=== PATIENT | female | born 1945 | race Caucasian/White ===

== ENCOUNTER 2020-04-09 10:58 | Outpatient (CLI) | payer MEDICARE, SELFPAY ==
--- NOTE | ~2020-04-09 | US_ITS ---
EXAMINATION: US soft tissue head and neck DATE: 04/09/2020 12:22 INDICATION: Anterior neck lump. TECHNIQUE: Multiple grayscale and Doppler ultrasound images of the neck were obtained. COMPARISON: None FINDINGS: There is no abnormal mass in the patient's area of concern in the anterior neck in the supr asternal notch. IMPRESSION: 1. No abnormal mass in the patient's area of concern in the anterior neck. Reviewed, dictated and finalized at location A.
== END 2020-04-09 10:59 | disposition home or self-care (01) ==
PROVIDERS: PCP Internal Medicine; Visit Provider Internal Medicine
DX: R22.1 Localized swelling, mass and lump, neck (principal)
CPT/HCPCS: 76536

== ENCOUNTER → 2020-10-11 13:18 | Outpatient (CLI) | payer MEDICARE, SELFPAY ==
--- NOTE | ~2020-10-11 | US_ITS ---
EXAMINATION: US retroperitoneal comp EXAM DATE: 10/11/2020 14:12 INDICATION: chronic cystitis without hematuria . TECHNIQUE: Multiple grayscale and Doppler images of the kidneys were obtained (by a technologist who performed the scan) and subsequently reviewed. There is no prior study for comparison. FINDINGS: Right kidney: There is normal contour and echogenicity. It measures 8.1 x 3.9 x 3.6 centimeters. Th ere are no focal renal lesions identified. There is no hydronephrosis. Left kidney: There is normal contour and echogenicity. It measures 10.5 x 4.2 x 5.3 centimeters. Th ere are no focal renal lesions identified. There is moderate hydronephrosis of a superior moiety. There is a density causing shadowing in the region of the left ureterovesicular junction projecting i nto the bladder measuring about 1.5 cm. There is dilated tubular structure extending from this pump stitcher ior to the bladder suspected to be hydroureter, however a ureteral jet was also confirmed. 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 Consider C T correlation. 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 Reviewed, dictated and finalized at location B. FARMER IMPRESSION: Findings detailed above; duplicated left ureters with stone obstruc ting superior moiety at the UVJ would explain these findings, but correlation w ith cross-sectional imaging would be helpful.
== END ==
PROVIDERS: Visit Provider Nurse Practitioner Adult Health
DX: N30.20 Other chronic cystitis without hematuria (principal)
CPT/HCPCS: 76770

== ENCOUNTER 2020-10-22 00:36 | Outpatient (CLI) | payer MEDICARE, SELFPAY ==
[2020-10-23 02:00] LABS: SARS-CoV-2 RNA PCR Negative
== END 2020-10-22 00:37 | disposition home or self-care (01) ==
LOC: ANHCOVIDDT 00:37
PROVIDERS: PCP Internal Medicine; Visit Provider Urology
DX: Z01.812 Encounter for preprocedural laboratory examination (principal); Z20.828 Contact with and (suspected) exposure to other viral communicable diseases
CPT/HCPCS: 87635; C9803; U0003

== ENCOUNTER 2020-10-22 07:59 | Outpatient (CLI) | payer MEDICARE, SELFPAY ==
--- NOTE | 2020-10-22 08:01 | ECG_ITS ---
Measurements Intervals [place] Rate: 58 P: 56 ND: 164 QRS: 3 QRSD: 83 T: 30 QT: 377 QTc: 370 Interpretive Statements SINUS BRADYCARDIA BORDERLINE R WAVE PROGRESSION, ANTERIOR LEADS NONSPECIFIC ST & T-WAVE ABNORMALITY- DIFFUSE LEADS BASELINE ARTIFACT- I, II, III, AVR, AVL, AVF BORDERLINE ECG Electronically Signed On 10-22-2020 8:27:56 MAINTENANCE SUPERVISOR MECHANICAL by Noe Knight D.O.
== END 2020-10-22 08:00 | disposition home or self-care (01) ==
PROVIDERS: PCP Internal Medicine; Visit Provider Urology
DX: Z01.810 Encounter for preprocedural cardiovascular examination (principal); N20.1 Calculus of ureter; E78.2 Mixed hyperlipidemia; R00.1 Bradycardia, unspecified
CPT/HCPCS: 87635; 93005; C9803; U0003

== ENCOUNTER 2020-10-23 00:35 | Day surgery (SDC) | payer MEDICARE, SELFPAY ==
[2020-10-21 14:19] VITALS: BMI 23.0
--- NOTE | 2020-10-22 09:11 | WPDANESEPPF ---
Anes - Initial Pre Proc Eval Procedure: Operation Date: 10/23/20 13:00 Proposed Procedures p Cystoscopy, Left Ureteroscopy, Left Retrograde Pyelogram, Left Stone Extraction, Left Stent Placement - Nilton Castro MD s Possible Holmium Laser Procedure - Nilton Castro MD Date/Time: 10/22/20 09:11 Surgeon: Nilton Castro MD Pre Op Diagnosis: Left Ureteral Stone Patient Data Age: 75 Gender: F Height: 1.6 m Weight: 58.98 kg Allergies Allergy/AdvReac Type Severity Reaction Status Date / Time rosuvastatin Allergy Intermediate Joint Pain Verified 10/21/20 13:48 Home Medications Medication Instructions Recorded Confirmed Type aspirin 81 mg PO DAILY 10/21/20 10/21/20 History calcium carbonate-vitamin D3 1 tablet PO BID 10/21/20 10/21/20 History [Calcium 600 + D(3)] docusate sodium [Stool Softener] 50 mg PO HS 10/21/20 10/21/20 History ketorolac 10 mg PO PRN PRN 10/21/20 10/21/20 History propranolol 60 mg PO HS 10/21/20 10/21/20 History rosuvastatin [Crestor] 20 mg PO HS 10/21/20 10/21/20 History turmeric 400 mg PO QAM 10/21/20 10/21/20 History vitamin E 450 mg PO DAILY 10/21/20 10/21/20 History Patient hx anesthesia problems: none Family hx anesthesia problems: none PMFSH Past Medical History Medical History (Updated 10/23/20 @ 11:45 by Enrique Mendoza DO) Mitral valve prolapse Mixed hyperlipidemia Social History Social History Smoking status: Never smoker Second hand tobacco smoke exposure: No Alcohol intake: never Living arrangements: with family Spiritual care concerns: No Anes - Eval Final PreProcedure Day of Procedure 10/22/20 09:11 Patient weight: normal Heart: regular rate and rhythm Lungs: clear to auscultation and normal air movement Airway: Mallampati scale class II Neurological: alert and oriented Last oral intake: >/= 8 hours ASA classification: II Emergent: no Anesthetic plan: proceed Anesthesia type and monitoring: general LMA and standard monitoring Informed Consent: The patient's anesthetic plan and its attendant risks and benefits were discussed with the patient/family/POA. Questions were solicited and answers provided to the satisfaction of the patient/family/POA.
[2020-10-23] VITALS (8 sets, daily range): BP systolic 121–181; BP diastolic 68–94; PULSE 60–74; RESP 10–20; TEMP 36.1–36.7; O2SAT 100
--- NOTE | ~2020-10-23 | XR_ITS ---
EXAMINATION: XR retrograde pyelo w/stent LT DATE: 10/23/2020 14:28 INDICATION: Left ureteral stone. TECHNIQUE: 102 intraoperative fluoroscopic views of the abdomen and pelvis were obtained. I was not p resent. Fluoroscopy exposure time was 71 seconds. COMPARISON: None. FINDINGS: The left-sided retrograde pyelogram demonstrates duplication of the left ureter. There is h ydronephrosis of the upper pole moiety. The final images demonstrate 2 left-sided internal ureteral s tents in expected positions. IMPRESSION: 1. 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 2. Two left-sided internal ureteral stents in expected positions. Reviewed, dictated and finalized at location A. RIAL LIAISON
[2020-10-23] MEDS: ACETAMINOPHEN 500 MG TABLET 1000 MG PO (11:49)
[2020-10-23] MEDS: LACTATED RINGERS 1,000 ML 30 ML IV CONT ×2 (11:50→14:18)
--- NOTE | 2020-10-23 12:38 | WPDHPUPDATE1 ---
History and Physical Update Update Date/Time: 10/23/20 12:38 Pt with left upper pole moiety UVJ stone over 2cm in size Explained increased complexity of procedure given stone size and duplicated system. she agrees to proceed. History and Physical has been reviewed, including an updated exam of the patient. There are NO changes in the patient's condition. Risks, benefits, and alternatives have been discussed and questions answered. Patient agrees to proceed with procedure.
[2020-10-23] MEDS: ceFAZolin 2 GM/D5W 50 ML 2 GM/50 ML BAG IVPB (12:50)
[2020-10-23] MEDS: LIDOCAINE HCL 2% GEL UROJET 10 ML PKG MUCOUS MEM (13:11)
--- NOTE | 2020-10-23 14:16 | PM.PROC ---
Procedure Note - Detailed Date of procedure: 10/23/20 Pre-op diagnosis: Left Ureteral Stone Post-op diagnosis: other (Left ureteral stone > 2cm, duplicated left collecting system) Procedure performed: -cystoscopy -left ureteroscopy of upper pole moiety -laser lithotripsy -retrograde pyelogram -left ureteral stent insertion x2 Description of procedure: Informed consent was obtained. Patient taken the operating room. Given preoperative IV antibiotics. She was induced anesthesia issues placed in dorsal lithotomy position she was prepped and draped in normal sterile fashion. We inserted a 22 F cystoscope through the urethra into the bladder. Inspected the bladder revealed there to be a large stone extruding from the left ureteral orifice of the upper pole moiety, the lower pole moiety ureter was patent. Additionally there was some inflammation of the posterior wall of the bladder likely due to irritation from the stone in the bladder. Was unable to place a wire past the stone in the upper pole moiety, therefore a wire and retrograde pyelogram was performed on the lower pole moiety that showed a delicate collecting system a 4.8 F stent was inserted with the current renal pelvis and curl in the bladder in order to protect the lower pole system. At this point a semi rigid ureteral scope was inserted and we began laser fragmentation of the stone we were able to remove the portion of stone that was extruding into the bladder and begin fragmentation of the stone in the intramural tunnel. At this point I was able to identify a crack in the stone and a wire was advanced beyond the stone into the upper pole system. We then dilated with an 810 coaxial dilator. A retrograde pyelogram revealed an extremely dilated upper pole collecting system. At this point within the advances cm rigid ureteral scope again and were able to use a laser fiber to fragment the stone into multiple fragments, fragments were then removed with a Zero tip basket. This point we inspected the ureter up to the proximal ureter without residual stones seen. Over the wire we placed a 6 F variable length stent with a curl in the upper pole system and curled the bladder. Bladder was emptied. Lidocaine was inserted. Due to the large size of the stone as well as the duplicated system, this procedure that normally takes approximately 30 to 45 minutes took [id number] due to the additional difficulty from the patient's anatomy. We will plan stent removal in 2 to 3 weeks. The patient will need a Lasix renal scan as well as additional upper tract imaging down the road. Anesthesia: GLMA Surgeon: Nilton Castro MD Estimated blood loss (mL): 10 Drains: No Packing: No Pathology: yes Complications: No immediate complications Condition: stable Disposition: PACU
--- NOTE | 2020-10-23 16:47 | SUR.PHASEII ---
1557 - dr. morrissey talking with pt at length.
== END 2020-10-23 16:05 | disposition home or self-care (01) ==
PROVIDERS: PCP Internal Medicine; Visit Provider Urology
PROC: (CPT 52352; principal; 2020-10-23 13:00)
PROC: (CPT 52356; 2020-10-23 13:00)
DX: N20.1 Calculus of ureter (principal); Q62.5 Duplication of ureter; E78.2 Mixed hyperlipidemia; I34.1 Nonrheumatic mitral (valve) prolapse
CPT/HCPCS: 52356; 52332; 74420; 82365; 88300; A9270; C1769; C2617; J0690; J2405; J2704; J3010; J7120; Q9966

== ENCOUNTER → 2020-12-09 08:49 | Outpatient (CLI) | payer MEDICARE, SELFPAY ==
--- NOTE | ~2020-12-09 | XR_ITS ---
EXAMINATION: XR abdomen/kub 1V INDICATION: Duplicated left collecting system TECHNIQUE: Supine views of the abdomen were obtained on 2 radiographs. COMPARISON: None FINDINGS: A 3 mm stone projects in the left kidney lower pole. Punctate left upper quadrant calcifica tions are consistent with old granulomatous disease of the spleen. There are phleboliths of the pelvi s. The bowel gas pattern is normal. There are no dilated loops of bowel. The visualized lung bases ar e clear. IMPRESSION: 1. Right nephrolithiasis. Reviewed, dictated and finalized at location A. VIOUR SUPPORT TEACHER IMPRESSION: 1. Right nephrolithiasis.
--- NOTE | ~2020-12-09 | CT_ITS ---
EXAMINATION: CT abdomen pelvis wo/w con DATE: 12/09/2020 09:44 INDICATION: Duplicated left renal collecting system, history of kidney stones TECHNIQUE: Computed tomography (CT) of the abdomen and pelvis was performed without intravenous contr ast. CT of the abdomen and pelvis was then performed with a total of 130 mL Omnipaque 350 intravenous contrast using a double-bolus technique for simultaneous opacification of the renal parenchyma and r enal collecting system. The dose-length product (DLP) was 1014.44 mGy-cm. Automated exposure control and iterative reconstruction technique were employed. COMPARISON: None FINDINGS: Minimal dependent atelectasis is present in the lung bases. The heart size is normal. Cysts of the liver measure up to 1.6 cm in the left hepatic lobe. Punctate calcifications in an otherwise normal spleen likely represent healed granulomatous disease. The pancreas, gallbladder, and adrenal g lands are normal. There is a 3 mm nonobstructing stone of the right kidney lower pole. No stones are present in the left kidney, ureters, or the bladder. There is a duplicated collecting system on the l eft. The left ureters are separately throughout their course and inserts separate from one another in the bladder. The ureter from the lower pole demonstrates intermittent opacification throughout its c ourse. No suspicious renal or urothelial lesion is identified. No hydronephrosis or hydroureter is se en. No pathologically enlarged abdominal or pelvic lymph nodes are identified. There is no free intra peritoneal gas or evidence of bowel obstruction. There is moderate lumbar spondylosis at L5-S1. IMPRESSION: 1. Duplicated left collecting system without hydronephrosis or hydroureter urine no suspicious renal or urothelial lesion identified. 2. Nonobstructing right nephrolithiasis. Reviewed, dictated and finalized at location A. CTION MOULDING MACHINE OPERATOR IMPRESSION: 1. Duplicated left collecting system without hydronephrosis or hydroureter urin e no suspicious renal or urothelial lesion identified. 2. Nonobstructing right nephrolithiasis.
[2020-12-09 09:22] LABS: Estimated Glomerular Filt Rate 49
== END ==
PROVIDERS: PCP Internal Medicine; Visit Provider Urology
DX: Q62.5 Duplication of ureter (principal); N20.0 Calculus of kidney
CPT/HCPCS: 74018; 74178; Q9967

== ENCOUNTER 2020-12-23 10:22 | Outpatient (CLI) | payer MEDICARE, SELFPAY ==
[2020-12-23 10:55] LABS: INR 0.8; Partial Thromboplastin Time 24.1 SECONDS (22.3-36.8); Prothrombin Time 11.8 Seconds (11.1-14.7)
== END 2020-12-23 10:23 | disposition home or self-care (01) ==
LOC: ANHSURGERY 10:25
PROVIDERS: PCP Internal Medicine; Visit Provider Urology
DX: Z01.818 Encounter for other preprocedural examination (principal); N20.1 Calculus of ureter
CPT/HCPCS: 36415; 85610; 85730; 87077; 87086; 87088

== ENCOUNTER 2020-12-24 01:58 | Outpatient (CLI) | payer MEDICARE, SELFPAY ==
[2020-12-24 18:12] LABS: SARS-CoV-2 RNA PCR Negative
== END 2020-12-24 01:59 | disposition home or self-care (01) ==
LOC: ANHCOVIDDT 01:58
PROVIDERS: PCP Internal Medicine; Visit Provider Urology
DX: Z01.812 Encounter for preprocedural laboratory examination (principal); Z20.822 Contact with and (suspected) exposure to COVID-19
CPT/HCPCS: C9803; U0003; U0005

== ENCOUNTER 2020-12-27 02:45 | Day surgery (SDC) | payer MEDICARE, SELFPAY ==
[2020-12-20 15:56] VITALS: BMI 23.2
--- NOTE | 2020-12-26 14:42 | P.PNAN_ITS ---
Anes - Initial Pre Proc Eval Procedure: Operation Date: 12/27/20 09:30 Proposed Procedures p Right Ureteral Extracorporeal Shock Wave Lithotripsy - Buddy Gordon MD Date/Time: 12/26/20 14:42 Surgeon: Buddy Gordon MD Pre Op Diagnosis: Right Ureteral Stone Patient Data Age: 75 Gender: F Height: 1.61 m Weight: 60 kg Allergies Allergy/AdvReac Type Severity Reaction Status Date / Time rosuvastatin AdvReac Intermediate Joint/MUSCLE Verified 12/27/20 08:09 Pain Home Medications Medication Instructions Recorded Confirmed Type Stool Softener 50 mg PO HS 10/21/20 12/20/20 History aspirin 81 mg PO DAILY 10/21/20 12/20/20 History calcium carbonate-vitamin D3 2 tablet PO HS 10/21/20 12/20/20 History [Calcium 600 + D(3)] turmeric 400 mg PO QA 10/21/20 12/20/20 History vitamin E 450 mg PO DAILY 10/21/20 12/20/20 History propranolol 60 mg PO HS 12/20/20 12/20/20 History rhubarb root extract [Estroven 4 mg PO HS 12/20/20 12/20/20 History Cmplt Menopause Rlf] rosuvastatin [Crestor] 20 mg PO HS 12/20/20 12/20/20 History Patient hx anesthesia problems: none Family hx anesthesia problems: none [facility] Past Medical History Medical History (Updated 12/26/20 @ 14:43 by Minh Stewart MD) HTN (hypertension) Mitral valve prolapse Mixed hyperlipidemia Social History Social History Smoking status: Never smoker Second hand tobacco smoke exposure: No Alcohol intake: current Substance use: never Living arrangements: with family Additional living arrangements comments: HUSB Spiritual care concerns: No Anes - Eval Final PreProcedure Day of Procedure 12/26/20 14:42 Patient weight: overweight Heart: regular rate and rhythm Lungs: clear to auscultation and normal air movement Airway: Mallampati scale class II Neurological: alert and oriented Last oral intake: >/= 8 hours ASA classification: II Emergent: no Anesthetic plan: proceed Anesthesia type and monitoring: general LMA Informed Consent: The patient's anesthetic plan and its attendant risks and benefits were discussed with the patient/family/POA. Questions were solicited and answers provided to the satisfaction of the patient/family/POA.
[2020-12-27] VITALS (8 sets, daily range): BP systolic 95–133; BP diastolic 50–78; PULSE 60–70; RESP 10–16; TEMP 36.2–36.5; O2SAT 99–100
--- NOTE | ~2020-12-27 | XR_ITS ---
EXAMINATION: XR abdomen/kub 1V EXAM DATE: 12/27/2020 07:39 INDICATION: Preright-sided lithotripsy. TECHNIQUE: Frontal projection of the upper abdomen, frontal projection lower abdomen/pelvis for inter pretation. Comparison is made to prior examination from 12/09/2020. Correlation was made with CT abdom en 12/09/2020. FINDINGS: Probable identification of right inferior calyceal stone, measuring about [address] Both renal contours are obscured by moderate amount of colonic stool. No dilated small bowel. Mild to mod erate bony degenerative changes. Right upper quadrant rounded chondrocalcinosis projecting over lower margin of the liver. IMPRESSION: 1. Probable identification right nephrolithiasis. Reviewed, dictated and finalized at location A. OR ENERGY ANALYST
[2020-12-27] MEDS: LACTATED RINGERS 1,000 ML 30 ML IV CONT (08:23)
--- NOTE | 2020-12-27 08:45 | WPDHPUPDATE1 ---
History and Physical Update Update Date/Time: 12/27/20 08:45 History and Physical has been reviewed, including an updated exam of the patient. There are NO changes in the patient's condition. Risks, benefits, and alternatives have been discussed and questions answered. Patient agrees to proceed with procedure.
[2020-12-27] MEDS: ceFAZolin 2 GM/D5W 50 ML 2 GM/50 ML BAG IVPB (08:58)
--- NOTE | 2020-12-27 09:19 | PM.PROC ---
Procedure Note - Detailed Date of procedure: 12/27/20 Pre-op diagnosis: Right Ureteral Stone Post-op diagnosis: same Procedure performed: Right ESWL Description of procedure: The patient was brought to the operative suite where she was placed in the supine position on the Dornier lithotripsy table. The focal point of the lithotripter was placed at a 5mm right lower pole calculus. A total of 2500 shocks were delivered at a power setting of 4. There appeared to be good fragmentation of the stone. The patient tolerated the procedure well and was taken to the recovery room in good condition. Anesthesia: GLMA Surgeon: Buddy Gordon MD Estimated blood loss (mL): 0 Drains: No Packing: No Pathology: none sent Complications: No immediate complications Condition: stable Disposition: PACU
== END 2020-12-27 11:15 | disposition home or self-care (01) ==
PROVIDERS: PCP Internal Medicine; Visit Provider Urology
PROC: (CPT 50590; principal; 2020-12-27 09:30)
DX: N20.1 Calculus of ureter (principal); Z79.82 Long term (current) use of aspirin; I10 Essential (primary) hypertension; I34.1 Nonrheumatic mitral (valve) prolapse; E78.2 Mixed hyperlipidemia
CPT/HCPCS: 50590; 36415; 74018; 85610; 85730; 87077; 87086; 87088; C9803; J0690; J1100; J2405; J2704; J3010; J7120; U0003; U0005

== ENCOUNTER 2021-01-03 07:14 | Outpatient (CLI) | payer MEDICARE, SELFPAY ==
--- NOTE | ~2021-01-03 | XR_ITS ---
XR abdomen/kub 1V DATE: 01/03/2021 07:34 INDICATION: Right urinary tract stone removed 1 week ago TECHNIQUE: AP rejection, 2 views COMPARISON: 12/27/2020 KUB 12/09/2020 CT abdomen pelvis without and subsequent with IV contrast material FINDINGS: Small calcified calculus of the lower pole the right kidney noted on 12/27/2020 is no longer evident. Bilateral calcified pelvic phleboliths. The psoas shadows are intact. No visceromegaly is evident. There is a moderately prominent amount fecal material within the colon but no evidence of bowel obstr uction. IMPRESSION: Resolution of lower pole right renal calcified calculus since 12/27/2020 Reviewed, dictated and finalized at Location A. Reviewed, dictated and finalized at location A. ER CURER IMPRESSION: Resolution of lower pole right renal calcified calculus since 2020
== END 2021-01-03 07:15 | disposition home or self-care (01) ==
LOC: ANHIMG 07:18
PROVIDERS: PCP Internal Medicine; Visit Provider Urology
DX: N20.2 Calculus of kidney with calculus of ureter (principal)
CPT/HCPCS: 74018

== ENCOUNTER 2021-10-10 02:26 | Day surgery (SDC) | payer MEDICARE, SELFPAY ==
[2021-09-25 14:28] VITALS: BMI 22.6
[2021-10-10 10:58] VITALS: BP 154/70; PULSE 55; RESP 16; TEMP 36.3; O2SAT 99; BMI 22.3
[2021-10-10] MEDS: LACTATED RINGERS 1,000 ML 150 ML IV CONT (11:09)
--- NOTE | 2021-10-10 11:10 | WPDANESEPPF ---
Anes - Initial Pre Proc Eval Procedure: Operation Date: 10/10/21 13:00 Proposed Procedures p Screening Colonoscopy - Mert Yao MD Date/Time: 10/10/21 11:10 Surgeon: Mert Yao MD Pre Op Diagnosis: neoplasm screening Patient Data Age: 76 Gender: F Height: 1.63 m Weight: 59 kg Last Vital Signs Temp 36.3 C L 10/10/21 10:58 Pulse 55 L 10/10/21 10:58 Resp 16 10/10/21 10:58 BP 154/70 H 10/10/21 10:58 Pulse Ox 99 10/10/21 10:58 Allergies Allergy/AdvReac Type Severity Reaction Status Date / Time rosuvastatin AdvReac Intermediate Joint/MUSCLE Verified 10/10/21 10:57 Pain Home Medications Medication Instructions Recorded Confirmed Type Stool Softener 50 mg PO HS 10/21/20 10/10/21 History aspirin 81 mg PO DAILY 10/21/20 10/10/21 History calcium carbonate-vitamin D3 2 tablet PO BID 10/21/20 10/10/21 History [Calcium 600 + D(3)] turmeric 400 mg PO QAM 10/21/20 10/10/21 History vitamin E 450 mg PO DAILY 10/21/20 10/10/21 History Estroven Cmplt Menopause Rlf 4 mg PO HS 12/20/20 10/10/21 History Crestor 20 mg tablet 20 mg PO DAILY #90 tablet NS 10/06/21 10/10/21 Rx propranolol 60 mg tablet 60 mg PO HS #90 tablet 10/06/21 10/10/21 Rx Patient hx anesthesia problems: none Family hx anesthesia problems: none Results Review: All pre-operative results and documents have been reviewed as part of the pre-operative evaluation. [facility] Past Medical History Medical History HTN (hypertension) Knee pain, left Left hip pain Mitral valve prolapse Mixed hyperlipidemia Renal calculus or stone Skin lesion Surgical History Surgical History (Updated 10/10/21 @ 11:10 by Nicolas Enamorado MD) H/O colonoscopy H/O lithotripsy Hx of cystoscopy Family History Family History Father Heart disease Social History Social History Smoking status: Never smoker Second hand tobacco smoke exposure: No Alcohol intake: current Substance use: never Substance use type: does not use Living arrangements: with family Additional living arrangements comments: HUSB Spiritual care concerns: No Anes - Eval Final PreProcedure Day of Procedure 10/10/21 11:10 Patient weight: normal Heart: regular rate and rhythm Lungs: clear to auscultation Airway: Mallampati scale class II Neurological: alert and oriented Last oral intake: >/= 8 hours ASA classification: II Emergent: no Anesthetic plan: proceed Anesthesia type and monitoring: general GIVS and standard monitoring Results Review: All pre-operative results and documents have been reviewed as part of the pre-operative evaluation. Informed Consent: The patient's anesthetic plan and its attendant risks and benefits were discussed with the patient/family/POA. Questions were solicited and answers provided to the satisfaction of the patient/family/POA.
--- NOTE | 2021-10-10 11:18 | PM.HPGS ---
History of Present Illness History of Present Illness Consent: Risks, benefits, and alternatives have been discussed and questions answered. Patient agrees to proceed with procedure. Chief complaint: neoplasm screening Narrative: Lu Jacinto is a 76 year old female here for screening colonoscopy, last one 2013 Review of Systems Constitutional: Constitutional: Denies headache(s) and Denies weakness Eyes: Eyes: Denies blurry vision ENT: Reports Normal hearing present, Denies headache(s) and Denies neck pain Cardiovascular: Cardiovascular: Denies chest pain and Denies dyspnea Respiratory: Respiratory: Denies dyspnea Gastrointestinal: Gastrointestinal: Reports no additional gastrointestinal complaints Genitourinary: Genitourinary: Denies dysuria Musculoskeletal: Musculoskeletal: Denies neck pain Integumentary/Breasts: Skin/Breast: Denies dry skin Neurologic: Reports Normal hearing present, Denies headache(s) and Denies weakness Psychiatric: Psychiatric: Denies anxiety Endocrine: Endocrine: Denies change in body appearance Hematologic/Lymphatic: Hematologic/Lymphatic: Denies easy bleeding Allergic/Immunologic: Allergic/Immunologic: Denies urticaria PMFSH Past Medical History Medical History (Updated 10/10/21 @ 11:19 by Mert Yao MD) Colon cancer screening HTN (hypertension) Knee pain, left Left hip pain Mitral valve prolapse Mixed hyperlipidemia Renal calculus or stone Skin lesion Surgical History Surgical History (Updated 10/10/21 @ 11:10 by Nicolas Enamorado MD) H/O colonoscopy H/O lithotripsy Hx of cystoscopy Family History Family History Father Heart disease Social History Social History Smoking status: Never smoker Second hand tobacco smoke exposure: No Alcohol intake: current Substance use: never Substance use type: does not use Living arrangements: with family Additional living arrangements comments: HUSB Spiritual care concerns: No Meds Home Medications and Allergies Home Medications Medication Instructions Recorded Confirmed Type Stool Softener 50 mg PO HS 10/21/20 10/10/21 History aspirin 81 mg PO DAILY 10/21/20 10/10/21 History calcium carbonate-vitamin D3 2 tablet PO BID 10/21/20 10/10/21 History [Calcium 600 + D(3)] turmeric 400 mg PO QAM 10/21/20 10/10/21 History vitamin E 450 mg PO DAILY 10/21/20 10/10/21 History Estroven Cmplt Menopause Rlf 4 mg PO HS 12/20/20 10/10/21 History Crestor 20 mg tablet 20 mg PO DAILY #90 tablet NS 10/06/21 10/10/21 Rx propranolol 60 mg tablet 60 mg PO HS #90 tablet 10/06/21 10/10/21 Rx Allergies Allergy/AdvReac Type Severity Reaction Status Date / Time rosuvastatin AdvReac Intermediate Joint/MUSCLE Verified 10/10/21 10:57 Pain Vital Signs Vital Signs - 24 hr 10/10/21 10:58 Temperature 97.3 F L Pulse Rate 55 L Respiratory Rate 16 Blood Pressure 154/70 H Pulse Oximetry 99 Exam Const: General: comfortable and no acute distress HENMT: General nose exam: Normal nares present Eyes: General: appearance normal, both eyes and all related structures Neck: Neck: no JVD Resp: Auscultation: clear to auscultation bilaterally Cardio: Rate: regular rate Rhythm: regular rhythm GI: Inspection: non-distended GI Palp: Yes Soft to palpation Skin: General skin exam: normal color Neuro: General: gait normal Speech: normal speech Extrem: General: normal to inspection Psych: Mental Status: mental status grossly normal Assessment and Plan Assessment and plan (1) Colon cancer screening: Code(s): Z12.11 - Encounter for screening for malignant neoplasm of colon Status: Acute Assessment and Plan: colonoscopy
[2021-10-10 11:33] VITALS: BP 93/53; PULSE 62; RESP 19; O2SAT 96
[2021-10-10 11:43] VITALS: BP 90/52; PULSE 59; RESP 14; O2SAT 97
[2021-10-10 11:53] VITALS: BP 100/47; PULSE 57; RESP 17; O2SAT 97
== END 2021-10-10 12:20 | disposition home or self-care (01) ==
PROVIDERS: PCP Nurse Practitioner Family; Visit Provider Internal Medicine Gastroenterology
PROC: 0DJD8ZZ Inspection of Lower Intestinal Tract, Via Natural or Artificial Opening Endoscopic (ICD-10-PCS; CPT 45378; principal; 2021-10-10 13:00)
DX: Z12.11 Encounter for screening for malignant neoplasm of colon (principal); K64.8 Other hemorrhoids; K64.4 Residual hemorrhoidal skin tags; I10 Essential (primary) hypertension; I34.1 Nonrheumatic mitral (valve) prolapse; E78.2 Mixed hyperlipidemia; Z79.82 Long term (current) use of aspirin
CPT/HCPCS: G0121; J2704; J7120

== ENCOUNTER → 2021-12-12 12:29 | Outpatient (CLI) | payer MEDICARE, SELFPAY ==
--- NOTE | ~2021-12-12 | XR_ITS ---
EXAMINATION: XR abdomen/kub 1V EXAM DATE: 12/12/2021 13:04 INDICATION: Left ureteral stone. TECHNIQUE: Frontal projection(s) of the abdomen for interpretation. Comparison is made to prior exami nation from 01/03/2021. FINDINGS: There is moderate amount of colonic stool and gas. No small bowel dilation, nonobstructiv e bowel gas pattern. No suspicious calcifications. Pelvic desiccation probably phleboliths. There is no organomegaly suspected. The bones are unremarkable. IMPRESSION: No suspicious calcifications identified. Reviewed, dictated and finalized at location A. HOLOGIST CLINICAL
== END ==
PROVIDERS: PCP Family Medicine; Visit Provider Urology
DX: N20.1 Calculus of ureter (principal)
CPT/HCPCS: 74018

== ENCOUNTER 2022-02-26 10:08 | Emergency (ER) | payer MEDICARE, SELFPAY ==
--- NOTE | 2022-02-26 10:12 | ED.LOWEXIN ---
HPI - Extremity Injury (Lower) General Chief Complaint: Extremity Injury, Lower Stated Complaint: left leg pain Time Seen by Provider: 02/26/22 10:25 Source: patient Mode of arrival: ambulatory Limitations: no limitations History of Present Illness HPI Narrative: Ms. Jacinto is a 76-year-old female patient presenting to the clinic today with complaints of left hip/leg pain x1.5 weeks. She reports this pain began after an exercise class. She reports that she did not feel any popping or had any injury during the exercise class however the night after she started having some left hip pain and that began radiating down her left leg. She reports yesterday she started to have a sharp sensation. Otherwise the pain has been more achy in nature in the hip joint. Reports that the pain is worse with laying and improves with sitting and standing. Reports that last night she was unable to sleep due to the pain. Currently she rates her pain a 4-5 on a 10 rating scale. Related Data Home Medications Medication Instructions Recorded Confirmed aspirin 81 mg PO DAILY 10/21/20 02/26/22 calcium carbonate-vitamin D3 2 tablet PO BID 10/21/20 02/26/22 [Calcium 600 + D(3)] vitamin E 450 mg PO DAILY 10/21/20 02/26/22 Estroven Cmplt Menopause Rlf 4 mg PO HS 12/20/20 02/26/22 Allergies Allergy/AdvReac Type Severity Reaction Status Date / Time rosuvastatin AdvReac Intermediate Joint/MUSCLE Verified 02/26/22 10:20 Pain Review of Systems Review of Systems: Pertinent positives per HPI. Patient denies any fever, chills, rash, headache, visual changes, dizziness, cough, runny nose, sore throat, shortness of breath, chest pain, palpitations, nausea, vomiting, diarrhea, constipation, abdominal pain, or any urinary issues. [facility] Past Medical History Medical History Colon cancer screening HTN (hypertension) Knee pain, left Left hip pain Mitral valve prolapse Mixed hyperlipidemia Renal calculus or stone Skin lesion Surgical History Surgical History H/O colonoscopy H/O lithotripsy Hx of cystoscopy Family History Family History Father Heart disease Social History Social History Smoking status: Never smoker Second hand tobacco smoke exposure: No Alcohol intake: current Substance use: never Substance use type: does not use Additional living arrangements comments: [facility] Spiritual care concerns: No Comments At the time of my signature, I reviewed and agree with the nursing past medical, surgical, social, and family history. There is no relevant family history pertinent to the patient complaint. Exam Narrative: General: Well-developed, well nourished, in no apparent distress Head: Normocephalic, atraumatic Cardio: Regular rate and rhythm, s1 and s2 normal, no murmur appreciated. Resp: Clear to auscultation bilaterally, no rhonchi, rales, wheezing or rubs. Musculoskeletal: No deformity, non-tender to palpation of the left hip joint, grossly normal range of motion, pain with internal rotation of the left hip, muscle strength strong and equal, peripheral pulse strong, no edema, no cyanosis, normal gait and station Course Course Emergency Course: Portions of this record may have been created with voice recognition software. Level of Care: Express Care Visit Vital Signs Vital signs: Vital Signs Temperature 36.6 C 02/26/22 10:20 Pulse Rate 59 L 02/26/22 10:20 Respiratory Rate 16 02/26/22 10:20 Blood Pressure 133/70 02/26/22 10:20 Pulse Oximetry 98 02/26/22 10:20 Temperature 36.6 C 02/26/22 10:20 Pulse Rate 59 L 02/26/22 10:20 Respiratory Rate 16 02/26/22 10:20 Blood Pressure 133/70 02/26/22 10:20 Pulse Oximetry 98 02/26/22 10:20
[2022-02-26 10:20] VITALS: BP 133/70; PULSE 59; RESP 16; TEMP 36.6; O2SAT 98
[2022-02-26] MEDS: KETOROLAC (*BKC) 60 MG/2 ML VIAL IM (10:48)
== END 2022-02-26 11:00 | disposition home or self-care (01) ==
PROVIDERS: Emergency Provider Nurse Practitioner Family; PCP Nurse Practitioner Family
DX: M25.552 Pain in left hip (principal); M25.852 Other specified joint disorders, left hip; I10 Essential (primary) hypertension; I34.1 Nonrheumatic mitral (valve) prolapse; E78.2 Mixed hyperlipidemia; Z79.82 Long term (current) use of aspirin
CPT/HCPCS: 96372; 99213; G0463; J1885

== ENCOUNTER 2022-03-02 10:01 | Emergency (ER) | payer MEDICARE, SELFPAY ==
--- NOTE | ~2022-03-02 | XR_ITS ---
EXAMINATION: XR foot LT min 3V EXAM DATE: 03/02/2022 10:32 INDICATION: Foot pain at about TM joint,no trauma. TECHNIQUE: Left foot dorsoplantar, lateral and oblique projections obtained and reviewed. There is n o prior study for comparison. FINDINGS: Left metatarsal bones unremarkable. There are no acute fractures or dislocations identifi ed. There is no subcutaneous gas. The soft tissue is unremarkable. There are no radiopaque foreig n bodies. Small posterior calcaneal spur. There is mild to moderate 1st metatarsophalangeal joint pr imary osteoarthritis. There are no bony erosions identified. 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 Reviewed, dictated and finalized at location A.
[2022-03-02 10:11] VITALS: BP 139/73; PULSE 64; RESP 18; TEMP 36.7; O2SAT 100
--- NOTE | 2022-03-02 10:12 | ED.EXTPRO ---
HPI - Extremity Problem General Chief complaint: Extremity Problem,Nontraumatic Stated complaint: Lt Foot Pain Time Seen by Provider: 03/02/22 10:12 Source: patient Mode of arrival: ambulatory Limitations: no limitations History of Present Illness HPI Narrative: 76-year-old female presents with complaint of left foot pain for 3 days. Patient has bony prominence to both of her feet states that all shoes rubbed this area but has had never had pain like this before. States that when she is in bed at night she feels burning to the area. When she has her shoes on she feels a constant pressure. When she takes shoe off she still having pain to this area on left foot. She is tried Advil and Tylenol with no relief. Her primary care doctor is out on maternity leave and states she has no other doctor to see her right now. She has seen a lace stripper in the past. She is ambulatory with steady gait. No injury. All systems reviewed and negative except as noted above. Related Data Home Medications Medication Instructions Recorded Confirmed aspirin 81 mg PO DAILY 10/21/20 03/02/22 calcium carbonate-vitamin D3 2 tablet PO BID 10/21/20 03/02/22 [Calcium 600 + D(3)] vitamin E 450 mg PO DAILY 10/21/20 03/02/22 Estroven Cmplt Menopause Rlf 4 mg PO HS 12/20/20 03/02/22 Allergies Allergy/AdvReac Type Severity Reaction Status Date / Time rosuvastatin AdvReac Intermediate Joint/MUSCLE Verified 03/02/22 10:05 Pain Review of Systems Review of Systems: CONSTITUTIONAL: Denies fever, chills, or sweats. EYES: Denies visual changes, redness, or discharge. ENT: Denies rhinorrhea, congestion, sore throat, or otalgia. CARDIOVASCULAR: Denies chest pain, palpitations, or edema. RESPIRATORY: Denies cough or dyspnea. GASTROINTESTINAL: Denies abdominal pain, nausea, vomiting, or diarrhea. GENITOURINARY: Denies dysuria or hematuria. SKIN: Denies rash or itching. MUSCULOSKELETAL: Denies back pain, joint pain, or myalgia. Pain to left foot. NEUROLOGIC: Denies headache, numbness, or weakness. PSYCHIATRIC: Denies anxiety or depression. All other systems reviewed are negative, except as documented in HPI. [facility] Past Medical History Medical History Colon cancer screening HTN (hypertension) Knee pain, left Left hip pain Mitral valve prolapse Mixed hyperlipidemia Renal calculus or stone Skin lesion Surgical History Surgical History H/O colonoscopy H/O lithotripsy Hx of cystoscopy Family History Family History Father Heart disease Social History Social History Smoking status: Never smoker Second hand tobacco smoke exposure: No Alcohol intake: current Substance use: never Substance use type: does not use Additional living arrangements comments: [facility] Spiritual care concerns: No Comments At time of signature, agree with nursing past medical, surgical, social and family history. There is no relevant family history pertinent to the presenting complaint. Exam Narrative: GENERAL: This is a well-nourished, well-developed patient, in no apparent distress. HEAD: normocephalic, atraumatic. EYES: PERRL. Sclera clear/white. Vision is grossly intact. EARS: External ears normal NOSE: External nose normal NECK: Neck supple, non-tender without lymphadenopathy, masses or thyromegaly. CARDIOVASCULAR: Regular rate RESPIRATORY: Regular rate SKIN: warm, Dry, intact with no suspicious lesions or rash, good texture and turgor. NEURO: awake, alert, and oriented to person, place and time. There were no obvious focal neurologic abnormalities. EXTREMITIES: Normal range of motion to all extremities. There is a bony prominence to dorsal aspect left midfoot. There is no tenderness on palpati
== END 2022-03-02 10:50 | disposition home or self-care (01) ==
PROVIDERS: Emergency Provider Nurse Practitioner Family; PCP Nurse Practitioner Family
DX: M19.072 Primary osteoarthritis, left ankle and foot (principal); I10 Essential (primary) hypertension; I34.1 Nonrheumatic mitral (valve) prolapse; E78.5 Hyperlipidemia, unspecified
CPT/HCPCS: 73630; 99213; G0463

== ENCOUNTER 2022-06-25 08:12 | Emergency (ER) | payer MEDICARE, SELFPAY ==
--- NOTE | ~2022-06-25 | XR_ITS ---
EXAMINATION: XR shoulder LT min 2V INDICATION: Left shoulder pain TECHNIQUE: Two views of the left shoulder are submitted. COMPARISON: None FINDINGS: There is an acute, traumatic, closed, oblique fracture in the proximal shaft of the left hu merus. The distal shaft is medially displaced and proximally migrated with respect to the humeral hea d. No additional fracture is identified. The glenohumeral and acromioclavicular joints appear normal. IMPRESSION: 1. Displaced and overriding fracture in the proximal shaft of the left humerus. Reviewed, dictated and finalized at location B.
--- NOTE | ~2022-06-25 | CT_ITS ---
EXAMINATION: CT brain wo con INDICATION: Head injury COMPARISON: None TECHNIQUE: Standard unenhanced head CT. The dose-length product (DLP) was 605.33 mGy-cm. The mA was a djusted according to patient size. Iterative reconstruction technique was employed. FINDINGS: There is a left frontal scalp hematoma. There is no acute intraparenchymal hemorrhage. No e vidence of mass lesion. No evidence of acute infarction. There is mild periventricular and subcortica l hypodensity probably related to small vessel ischemic disease. There is mild prominence of the sulc i and ventricles related to cerebral atrophy. Intracranial calcified cerebral atherosclerosis is note d. There are no extra-axial collections. There is no mass effect or midline shift. The orbits are unr emarkable. The visualized sinuses and mastoid air cells are well aerated. IMPRESSION: 1. Left frontal scalp hematoma without acute intracranial abnormality. 2. Age related findings. Reviewed, dictated and finalized at location B.
--- NOTE | ~2022-06-25 | XR_ITS ---
EXAMINATION: XR humerus LT INDICATION: Left arm pain and deformity, initial encounter TECHNIQUE: Two views of the left humerus are obtained on four radiographs. COMPARISON: None available FINDINGS: There is an acute, traumatic, closed, oblique fracture in the proximal shaft of the left hu merus. The distal shaft is medially displaced and proximally migrated with respect to the humeral hea d. No additional fracture is identified. IMPRESSION: 1. Displaced and overriding fracture in the proximal shaft of the left humerus. Reviewed, dictated and finalized at location B.
[2022-06-25 08:24] VITALS: BP 112/56; PULSE 48; RESP 16; TEMP 36.9; O2SAT 99
[2022-06-25] MEDS: HYDROcodone/acetaminophen (*CRX) 5-325 MG TABLET 1 TAB PO (08:37)
--- NOTE | 2022-06-25 09:16 | ED.FALL ---
HPI - Fall General Chief Complaint: Fall Stated Complaint: fall, left arm pain Time Seen by Provider: 06/25/22 08:19 Source: RN notes reviewed History of Present Illness HPI Narrative: Patient presents emergency department from home for a fall. Patient states that just prior to arrival she is going to get into her bathtub when she tripped over the tub and fell falling on her left side she states she is had severe pain in her left arm since that time she also states she struck the left side of her head denies any loss of consciousness she denies having any vision changes chest pain shortness of breath numbness or tingling in the extremities or any other symptoms. Patient states that she has pain with any movement of her left arm at the shoulder. Related Data Home Medications Medication Instructions Recorded Confirmed aspirin 81 mg tablet 81 mg PO DAILY 10/21/20 06/15/22 calcium carbonate 600 mg-vitamin 2 tablet PO BID 10/21/20 06/15/22 D3 10 mcg (400 unit) tablet (Calcium 600 + D(3)) vitamin E 400 unit tablet 450 mg PO DAILY 10/21/20 06/15/22 rhubarb root extract 4 mg tablet 4 mg PO HS 12/20/20 06/15/22 (Estroven Complete Menopause Relief) Allergies Allergy/AdvReac Type Severity Reaction Status Date / Time rosuvastatin AdvReac Intermediate Joint/MUSCLE Verified 06/25/22 08:28 Pain Review of Systems Review of Systems: Gen.: Denies fevers or chills Eyes: Denies eye pain or visual change ENT: Denies congestion Respiratory: Denies shortness of breath CV: Denies chest pain GI: Denies abdominal pain nausea, emesis or diarrhea Musculoskeletal: See HPI Neuro: Denies numbness, tingling, weakness or focal weakness reports striking the left side of her head Skin: Denies rash Except as documented, all other systems reviewed and negative PMF Past Medical History Medical History Colon cancer screening Encounter for hepatitis C screening test for low risk patient History of COVID-19 HTN (hypertension) Knee pain, left Left hamstring injury Left hip pain Mitral valve prolapse Mixed hyperlipidemia Prediabetes Renal calculus or stone Skin lesion Vitamin D deficiency Surgical History Surgical History H/O colonoscopy H/O lithotripsy Hx of cystoscopy Family History Family History Father Heart disease Social History Social History Smoking status: Never smoker Second hand tobacco smoke exposure: No Alcohol intake: current Substance use: never Substance use type: does not use Additional living arrangements comments: [facility] Spiritual care concerns: No Exam Narrative: APPEARANCE: No acute distress, nontoxic, resting in bed EYES: EOMI, PERRL HEENT: Normocephalic, small area of swelling over the left superior forehead nares patent Neck: Supple no midline tenderness palpation for range of motion without pain RESPIRATORY: No respiratory distress Clear to auscultation bilaterally with no rhonchi wheezing or rales. CARDIOVASCULAR: Regular rate and rhythm without murmurs rubs or gallops. ABDOMINAL: Soft, nontender, nondistended, no rebound or guarding MUSCULOSKELETAl: Moves all extremities. No clubbing, cyanosis or edema. No tenderness of the right upper extremity bilateral lower extremity, tenderness around the left shoulder with pain with any movement left shoulder no tenderness left elbow or wrist radial pulse 2+ neurovascular intact NEURO: Awake and alert x 4. Following commands, speech normal, no focal deficits SKIN:: Warm, dry. No rashes lesions or abrasions PSYCHIATRIC: Normal affect/mood, Course Course Emergency Course: Discussed with Dr. Chowdary for orthopedics recommends transfer for higher level of orthopedic care as patient will require surgery does not perfo
[2022-06-25 09:49] VITALS: BP 136/59; PULSE 60; RESP 16; O2SAT 100
[2022-06-25] MEDS: MORPHINE SULFATE (*CRX) 2 MG/ML INJ IV PUSH (10:36)
[2022-06-25] MEDS: ONDANSETRON INJ 4 MG/2 ML VIAL IV PUSH (10:37)
== END 2022-06-25 10:30 | disposition short-term general hospital (02) ==
PROVIDERS: Emergency Provider Emergency Medicine; PCP Nurse Practitioner Family
DX: S42.392A Other fracture of shaft of left humerus, initial encounter for closed fracture (principal); S00.83XA Contusion of other part of head, initial encounter; I10 Essential (primary) hypertension; I34.1 Nonrheumatic mitral (valve) prolapse; E78.2 Mixed hyperlipidemia; R73.03 Prediabetes; E55.9 Vitamin D deficiency, unspecified; Z86.16 Personal history of COVID-19; Z87.442 Personal history of urinary calculi; Z79.82 Long term (current) use of aspirin; W18.2XXA Fall in (into) shower or empty bathtub, initial encounter
CPT/HCPCS: 70450; 73030; 73060; 96374; 96375; 99285; A4565; A9270; J2270; J2405

== ENCOUNTER 2023-01-12 13:09 | Emergency (ER) | payer MEDICARE, SELFPAY ==
--- NOTE | 2023-01-12 13:23 | ED.EAR ---
HPI - Ear Problem General Chief complaint: Ear Stated complaint: bilateral ear discomfort Time Seen by Provider: 01/12/23 14:18 Source: patient and RN notes reviewed Mode of arrival: ambulatory Limitations: no limitations History of Present Illness HPI Narrative: 77-year-old female presents with concern for bilateral tinnitus for 1 month. She denies decreased hearing, dizziness, headache, drainage from the ears. She denies any injury or trauma to the ears. She denies any history of problems with her ears. She reports she did have wax buildup that her primary tried to remove and was unable to. MD Complaint: other (Tinnitus) Related Data Home Medications Medication Instructions Recorded Confirmed aspirin 81 mg tablet 81 mg PO DAILY 10/21/20 01/12/23 calcium carbonate 600 mg-vitamin 2 tablet PO BID 10/21/20 01/12/23 D3 10 mcg (400 unit) tablet (Calcium 600 + D(3)) vitamin E 400 unit tablet 450 mg PO DAILY 10/21/20 01/12/23 rhubarb root extract 4 mg tablet 4 mg PO HS 12/20/20 01/12/23 (Estroven Complete Menopause Relief) Allergies Allergy/AdvReac Type Severity Reaction Status Date / Time rosuvastatin AdvReac Intermediate Joint/MUSCLE Verified 01/12/23 13:24 Pain Review of Systems Review of Systems: CONSTITUTIONAL: Denies malaise, chills, sweats, or fever. EYES: Denies visual changes, redness, or discharge. ENT: Denies rhinorrhea, congestion, sinus pain, and sore throat. Reports tinnitus bilaterally CARDIOVASCULAR: Denies chest pain, palpitations, or edema. RESPIRATORY: Denies cough. Denies dyspnea. GASTROINTESTINAL: Denies abdominal pain, nausea, vomiting, diarrhea SKIN: Denies rash or itching. MUSCULOSKELETAL: Denies myalgia. NEUROLOGIC: Denies headache. All systems reviewed & are unremarkable except as noted in HPI and below PMFSH Past Medical History Medical History Colon cancer screening Encounter for hepatitis C screening test for low risk patient History of COVID-19 HTN (hypertension) Knee pain, left Left hamstring injury Left hip pain Mitral valve prolapse Mixed hyperlipidemia Prediabetes Renal calculus or stone Skin lesion Vitamin D deficiency Surgical History Surgical History H/O colonoscopy H/O lithotripsy Hx of cystoscopy Family History Family History Father Heart disease Social History Social History Smoking status: Never smoker Second hand tobacco smoke exposure: No Alcohol intake: current Substance use: never Substance use type: does not use Living arrangements: with family Additional living arrangements comments: [facility] Spiritual care concerns: No Comments At time of signature, agree with nursing past medical, surgical, social and family history. There is no relevant family history pertinent to the presenting complaint Exam Narrative: GENERAL: Well-appearing, well-nourished, and in no acute distress. HEAD: Normocephalic EYES: PERRLA, conjunctivae clear ENT: Nares clear. Mucous membranes moist. Last TM pearly rojas with dull light reflex, right TM not visible due to cerumen impaction; no tragal tenderness. Oropharynx not erythematous without lesions. Tonsils not enlarged and without exudate, no drooling, no hoarseness, no trismus, uvula midline. NECK: Supple. No lymphadenopathy CHEST: Clear to auscultation, breath sounds equal. No wheezing, rhonchi, rales, or stridor. No respiratory distress, speaks in full sentences. HEART: Regular rate and rhythm. No murmur heard. SKIN: Warm, dry, no rash. NEURO: Alert and oriented x3. PSYCH: Normal mood and affect Course Course Emergency Course: Patient is aware of diagnosis, understands and agrees to treatment plan. Anticipatory guidance given. Patient agrees to follow-up as direc
[2023-01-12 13:29] VITALS: BP 147/72; PULSE 61; RESP 18; TEMP 36.1; O2SAT 100
== END 2023-01-12 14:25 | disposition home or self-care (01) ==
PROVIDERS: Emergency Provider Nurse Practitioner; PCP Nurse Practitioner Family
DX: H69.83 Other specified disorders of Eustachian tube, bilateral (principal); H61.21 Impacted cerumen, right ear; I10 Essential (primary) hypertension; I34.1 Nonrheumatic mitral (valve) prolapse; E78.2 Mixed hyperlipidemia; R73.03 Prediabetes; E55.9 Vitamin D deficiency, unspecified; Z86.16 Personal history of COVID-19; Z79.82 Long term (current) use of aspirin
CPT/HCPCS: 69209; 99213; A9270; G0463

== ENCOUNTER 2023-03-02 12:47 | Outpatient (CLI) | payer MEDICARE, SELFPAY | END 2023-03-02 12:48 | disposition home or self-care (01) | LOC: ANHAUDIO 12:49 | PROVIDERS: PCP Nurse Practitioner Family; Visit Provider Otolaryngology | DX: H93.19 Tinnitus, unspecified ear (principal); H90.3 Sensorineural hearing loss, bilateral | CPT/HCPCS: 92557; 92567 ==

== ENCOUNTER 2024-01-27 10:49 | Outpatient (CLI) | payer MEDICARE, SELFPAY ==
--- NOTE | ~2024-01-27 | XR_ITS ---
Left Shoulder Technique: AP and scapular Y views were obtained. Clinical History: Pain COMPARISON: 06/17/2022 Findings: There is extensive orthopedic fixation hardware along the lateral aspect of the proximal hu meral shaft and humeral head. There is a fracture deformity through the surgical neck, unclear was a chronic nonunited fracture versus a new acute fracture.. The glenohumeral and acromioclavicular joint spaces are preserved. Soft tissues are unremarkable. Impression: Prior ORIF of the proximal humerus with fracture deformity at the surgical neck. It is unclear whethe r this is an acute fracture versus chronic nonunited fracture. Reviewed, dictated and finalized at location . [facility] PATHOLOG[facility] Impression: Prior ORIF of the proximal humerus with fracture deformity at the surgical neck . It is unclear whether this is an acute fracture versus chronic nonunited frac ture.
== END 2024-01-27 10:50 | disposition home or self-care (01) ==
PROVIDERS: PCP Nurse Practitioner Family; Visit Provider Nurse Practitioner Family
DX: S42.202A Unspecified fracture of upper end of left humerus, initial encounter for closed fracture (principal); X50.0XXA Overexertion from strenuous movement or load, initial encounter
CPT/HCPCS: 73030